=== PATIENT | male | born 2000 | race Hispanic/Latino ===

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

== ENCOUNTER 2022-08-09 15:27 | Emergency (ER) | payer OTHER, SELFPAY ==
[~2022-08-09] VITALS: Ht 170.2 cm; Wt 69.5 kg
[~2022-08-09 15:27] MED LIST changes: -AMIT10TA PO; +AMIT10TA7 PO; +RALTEGRAVIR 400 MG TAB (ISENTRESS) PO SCH; +TRUVADA 200MG/300MG TABLET PO SCH
[2022-08-09] MEDS ORDERED: EXPOSURE KIT-ADULT 7 DAY SUPPLY PO ONE (19:35)
[2022-08-09 19:59] LABS: HEPATITIS B SURFACE ANTIBODY NEGATIVE (POSITIVE); HEPATITIS B SURFACE ANTIGEN NEGATIVE (NEGATIVE); HEPATITIS C VIRUS ABY INDEX < 0.0 INDEX (<0.8); HIV 1&2 SCREEN CENTAUR NEGATIVE (NEGATIVE)
[2022-08-09] MEDS ORDERED: TRUVADA 200MG/300MG TABLET PO ONE (20:00)
[2022-08-09] MEDS ORDERED: RALTEGRAVIR 400 MG TAB (ISENTRESS) PO ONE (20:00)
[2022-08-09 20:33] LABS: GC DNA AMPLIFICATION NEGATIVE (NEGATIVE)
[2022-08-09] MEDS ORDERED: RALT40TA PO (20:40)
[2022-08-09] MEDS ORDERED: EMTR1TAB16 PO (20:40)
[2022-08-09 20:45] VITALS: BP 122/61
== END 2022-08-09 20:47 | disposition home or self-care (01) ==
LOC: M ED 15:27
DX: Z11.3 Encounter for screening for infections with a predominantly sexual mode of transmission (principal); F17.210 Nicotine dependence, cigarettes, uncomplicated; Z91.040 Latex allergy status; Z91.013 Allergy to seafood; Z79.899 Other long term (current) drug therapy